=== PATIENT | female | born 1990 | race Caucasian/White ===

== ENCOUNTER 2020-04-21 12:08 | Observation (INO) | payer MEDICAID, SELFPAY ==
--- NOTE | ~2020-04-21 | US_ITS ---
EXAMINATION: US OB limited DATE: 04/21/2020 13:47 INDICATION: Back pain and spotting during second trimester TECHNIQUE: Real-time ultrasound of the pelvis was performed. The interpreting radiologist was not pre sent for the study. COMPARISON: None. FINDINGS: There is a single living fetus in vertex presentation. The placenta is posterior and 6 cm f rom the internal cervical os. cardiac activity and movement are noted. heart rate i s 150 beats per minute (bpm). The amniotic fluid index is subjectively normal. Cholelithiasis is inci dentally noted. IMPRESSION: 1. Single living fetus in vertex presentation. 2. Posterior placenta 6 cm from the internal cervical os. 3. Incidental note made of cholelithiasis. Reviewed, dictated and finalized at location A.
[2020-04-21 12:02] VITALS: BP 117/71; PULSE 93; RESP 18; TEMP 36.6; O2SAT 100
[2020-04-21 12:30] VITALS: TEMP 36.7
[2020-04-21 12:45] VITALS: BP 97/60; PULSE 80
[2020-04-21 13:00] VITALS: BP 99/57; PULSE 80
[2020-04-21 13:15] VITALS: BP 95/58; PULSE 71
[2020-04-21 13:43] LABS: Add Urine Microscopic? YES; Appearance Urine Clear (Clear); Bacteria Urine Trace /hpf; Bilirubin Urine Negative (Negative); Blood Urine Negative (Negative); Color Urine Yellow (Yellow); Glucose Urine UA Negative (Negative); Ketones Urine Negative (Negative); Leukocyte Esterase Ur 1+ LEU/UL (NEGATIVE); Mucus Urine Few /lpf; Nitrate Urine Negative (Negative); Protein Urine 1+ mg/dL (Negative); Specific Grav Ur 1.024 (1.001-1.035); Squamous Epithelial Cell Urine Moderate /hpf (Few); WBC Urine 0-3 /hpf (0-3)
[2020-04-21] MEDS: CYCLOBENZAPRINE HCL 10 MG TABLET PO (14:05)
--- NOTE | 2020-04-24 07:57 | PM.OBTRLD ---
OB - Triage/Final Diagnosis Visit Information Date of evaluation: 04/21/20 Comments/Additional reasons for admission: neck pain, vaginal spotting Evaluation Laboratory results: Laboratory Tests 04/21/20 13:33 Urine Color Yellow Urine Appearance Clear Urine pH 6.0 Ur Specific [place] 1.024 Urine Protein 1+ H Urine Glucose (UA) Negative Urine Ketones Negative Ur Blood (Man) Negative Urine Nitrate Negative Urine Bilirubin Negative Urine Urobilinogen 2.0 H Ur Leukocyte Esterase 1+ H Urine RBC 6-10 H Urine WBC 0-3 Ur Squamous Epith Cells Moderate H Urine Bacteria Trace Urine Mucus Few H
== END 2020-04-21 15:01 | disposition home or self-care (01) ==
PROVIDERS: Advanced Practice Midwife; Admitting Provider Obstetrics & Gynecology; Visit Provider Obstetrics & Gynecology
DX: O26.852 Spotting complicating pregnancy, second trimester (principal); Z3A.21 21 weeks gestation of pregnancy
CPT/HCPCS: 76815; 81001; 87086; 87088; A9270; G0378; G0379